=== PATIENT | female | born 1990 | race Two or more races ===

== ENCOUNTER 2019-02-19 03:46 | Inpatient (IN) | payer OTHER ==
[2019-02-19] MEDS ORDERED: Promethazine 25 MG/ML SDV IM ONE (04:13)
[2019-02-19] MEDS ORDERED: Morphine 4 MG/ML Syringe IM ONE (04:13)
[2019-02-19] MEDS ORDERED: Sodium Chloride 0.9% 10 ML Syringe FLUSH PRN (06:50)
[2019-02-19] MEDS ORDERED: Nalbuphine 10 MG/1 ML Vial IVPUSH PRN (06:50)
[2019-02-19] MEDS ORDERED: Ondansetron 4 MG/2 ML SDV IVPUSH PRN (06:50)
--- NOTE | 2019-02-19 06:53 | PCM.LDHP ---
L&D History of Present Illness - General Date of Service: 02/19/19 Admit Problem/Dx: Admission Diagnosis/Problem Admission Diagnosis/Problem Source of Information: Patient History Limitations: Reports: No Limitations - History of Present Illness Introduction:: Patient is a 28 y/o at 39 2/7 wks who presents for concerns of labor. Has been having on and off yulisa sheehan for the last few days. Was seen in L& D last evening and discharged home with an Rx for ambien to aid in sleep with these bothersome contractions . Did not take medication. States she has not slept all night. Contractions have significantly worsened. No LOF. 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: : 1 Para: 0 LMP (Approximate): Endocrine/Metabolic History: Reports: Hypothyroidism - Past Surgical History Other Surgical History Comment: No past surgical history Social & Family History - Family History Family Medical History: Noncontributory - Tobacco Use Smoking Status *Q: Never Smoker Second Hand Smoke Exposure: No - Alcohol Use Alcohol Use History: No - Recreational Drug Use Recreational Drug Use: No H&P Review of Systems - Review of Systems: Review Of Systems: See Below General: Reports: No Symptoms Pulmonary: Reports: No Symptoms Cardiovascular: Reports: No Symptoms Gastrointestinal: Reports: Abdominal Pain Genitourinary: Reports: No Symptoms Musculoskeletal: Reports: No Symptoms Psychiatric: Reports: No Symptoms Neurological: Reports: No Symptoms L&D Exam - Exam Exam: See Below - Vital Signs Vital Signs: Last Vital Signs Temp 36.8 C 02/19/19 04:30 Pulse Resp 14 02/19/19 04:30 BP 103/76 02/19/19 04:30 Pulse Ox 100 02/19/19 04:30 Weight: 75.387 kg - OB Specific Contraction Intensity: Moderate Movement: Active Heart Tones: Present Heart Tones per Min: 130 Heart Rate (FHR) Variability: Moderate (6-25 bmp) Presentation: Vertex - Schaefer Score Schaefer Score Cervix Position: Midposition Schaefer Score Consistency: Soft Schaefer Score Effacement: >80% Schaefer Score Dilation: 1-2 cm Schaefer Score Infant's Station: -2 Schaefer Score Total: 8 - Exam General: Alert, Oriented, Cooperative Lungs: Clear to Auscultation, Normal Respiratory Effort Cardiovascular: Regular Rate, Regular Rhythm GI/Abdominal Exam: Soft, Non-Tender Genitourinary: Normal external exam Extremities: Normal Inspection Skin: Warm, Dry, Intact - Patient Data Result Diagrams: 02/19/19 07:18 - Problem List (1) 39 weeks gestation of SNOMED Code(s): 02502574 ICD Code: Z3A.39 - 39 WEEKS GESTATION OF Status: Acute Current Visit: Yes (2) Prolonged latent phase of labor SNOMED Code(s): 837904526 ICD Code: O63.0 - PROLONGED FIRST STAGE (OF LABOR) Status: Acute Current Visit: Yes Problem List Initiated/Reviewed/Updated: Yes Orders Last 24hrs: Active Orders 24 hr Category Date Time Status Activity as Tolerated [RC] PFP Care 02/19/19 06:50 Ordered Communication Order [RC] ASDIRECTED Care 02/19/19 06:50 Ordered Heart Tones [RC] ASDIRECTED Care 02/19/19 06:51 Ordered Non Stress Test [RC] PER UNIT ROUTINE Care 02/19/19 06:50 Ordered Notify Provider [RC] PFP Care 02/19/19 06:50 Ordered Notify Provider [RC] PRN Care 02/19/19 06:50 Ordered Peripheral IV Care [RC] . DIRECTED Care 02/19/19 06:51 Ordered Vital Signs [RC] PER UNIT ROUTINE Care 02/19/19 06:50 Ordered CBC W/O DIFF,HEMOGRAM [HEME] Routine Lab 02/19/19 06:50 Ordered RAPID PLASMA REAGIN,RPR [CHEM] Routine Lab 02/19/19 06:50 Ordered TYPE AND SCREEN [BBK] Routine Lab 02/19/19 06:50 Ordered Lactated Ringers [Ringers, Lactated] 1,000 ml Med 02/19/19 07:00 Ordered IV ASDIRECTED Nalbuphine [Nubain] Med 02/19/19 06:50 Ordered 10 mg IVPUSH Q2H PRN Ondansetron [Zofran] Med 02/19/19 06:50 Ordered 4 mg IVPUSH Q4H PRN Oxytocin/Lactated Ringers [Pitocin in LR 10 Units/1,000 Med 02/19/19 07:00 Ordered ML] 10 unit in 1,000 ml IV .CONTINUOUS Sodium Chloride 0.9% [Saline Flush] Med 02/19/19 06:50 Ordered 10 ml FLUSH ASDIRECTED PRN Electronic Heart Tones Ext w TOCO [WOMSER] Oth 02/19/19 06:50 Ordered Routine Electronic Heart Tones Internal [WOMSER] Per Unit Ot 02/19/19 06:50 Ordered Routine Peripheral IV Insertion Adult [OM.PC] Routine Oth 02/19/19 06:50 Ordered Resuscitation Status Routine Resus Stat 02/19/19 06:50 Ordered Assessment/Plan Comment:: 28 y/o G1 at 39 2/7 wks with prolonged latent labor phase. Will try initially treating with 8 mg of IM morphine and 25 mg of IM phenergan. Will reassess in a few hours. ([id number]) 0720 Patient with small amount of change. Did rest well, but continues to have regular contractions she rates strongly. Will admit for labor. Labs ordered. GBS negative, no need for antibiotics. AROM performed with release of meconium stained fluid. Pain management per patient preference. Anticipate .
[2019-02-19] MEDS ORDERED: Oxytocin/Lactated Ringers 10 UNIT/1,000 ML BAG IV SCH ×2 (07:00→17:45)
[2019-02-19] MEDS: Lactated Ringers 1,000 ML IV SCH ×4 (08:59→14:58)
[2019-02-19] MEDS ORDERED: fentaNYL 100 MCG/2 ML SDV EPIDUR PRN (09:45)
[2019-02-19] MEDS ORDERED: ePHEDrine 50 MG/ML SDV IVPUSH PRN ×2 (09:45→20:33)
[2019-02-19] MEDS ORDERED: Bupivacaine/fentaNYL/NS 100 ML Bag EPIDUR PRN (09:45)
[2019-02-19] MEDS ORDERED: diphenhydrAMINE 50 MG/ML SDV IVPUSH PRN ×2 (09:45→20:33)
--- NOTE | 2019-02-19 10:15 | PCM.PREANE ---
Preanesthetic Assessment - Procedure Proposed Procedure: lABOR EPIDURAL - Anesthesia/Transfusion/Family Hx Anesthesia History: No Prior Anesthesia Family History of Anesthesia Reaction: No Transfusion History: No Prior Transfusion(s) - Review of Systems General: No Symptoms Pulmonary: No Symptoms Cardiovascular: No Symptoms Gastrointestinal: Abdominal Pain (LABOR) Neurological: No Symptoms Other: Reports: Anxiety - Physical Assessment Vital Signs: Last Vital Signs Temp 36.8 C 02/19/19 04:30 Pulse Resp 14 02/19/19 04:30 BP 103/76 02/19/19 04:30 Pulse Ox 100 02/19/19 04:30 Height: 1.6 m Weight: 75.387 kg ASA Class: 2 Mental Status: Alert & Oriented x3 Airway Class: Mallampati = 1 Dentition: Reports: Normal Dentition Thyro-Mental Finger Breadths: 3 Mouth Opening Finger Breadths: 3 ROM/Head Extension: Full Lungs: Clear to Auscultation, Normal Respiratory Effort Cardiovascular: Regular Rate, Regular Rhythm - Lab Values: Laboratory Last Values WBC 13.52 K/mm3 (3.98-10.04) H 02/19/19 07:18 RBC 4.29 M/mm3 (3.98-5.22) 02/19/19 07:18 Hgb 12.2 gm/dl (11.2-15.7) 02/19/19 07:18 Hct 35.9 % (34.1-44.9) 02/19/19 07:18 MCV 83.7 fl (79.4-94.8) D 02/19/19 07:18 MCH 28.4 pg (25.6-32.2) 02/19/19 07:18 MCHC 34.0 g/dl (32.2-35.5) 02/19/19 07:18 RDW Std Deviation 39.8 fL (36.4-46.3) 02/19/19 07:18 Plt Count 265 K/mm3 (182-369) 02/19/19 07:18 MPV 11.4 fl (9.4-12.3) 02/19/19 07:18 Blood Type O POSITIVE 02/19/19 07:18 Gel Antibody Screen Negative 02/19/19 07:18 - Allergies Allergies/Adverse Reactions: Allergies Allergy/AdvReac Type Severity Reaction Status Date / Time No Known Allergies Allergy Verified 02/19/19 06:33 - Anesthesia Plan Pre-Op Medication Ordered: None - Acknowledgements Anesthesia Type Planned: Epidural Pt an Appropriate Candidate for the Planned Anesthesia: Yes Alternatives and Risks of Anesthesia Discussed w Pt/Guardian: Yes Pt/Guardian Understands and Agrees with Anesthesia Plan: Yes PreAnesthesia Questionnaire - Past Health History Medical/Surgical History: Denies Medical/Surgical History Gastrointestinal History: Reports: GERD 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: Endocrine/Metabolic History: Reports: Hypothyroidism Other Endocrine/Metabolic History: 2 nodules on thyroid - Past Surgical History Other Surgical History Comment: No past surgical history - SUBSTANCE USE Smoking Status *Q: Never Smoker Second Hand Smoke Exposure: No Recreational Drug Use History: No - HOME MEDS Home Medications: Home Meds Levothyroxine [Synthroid] 50 mcg PO DAILY 12/11/18 [History] - CURRENT (IN HOUSE) MEDS Current Meds: Current Medications Diphenhydramine HCl (Benadryl) 25 mg IVPUSH Q6H PRN PRN Reason: Itching Ephedrine Sulfate (Ephedrine Sulfate) 5 mg IVPUSH ASDIRECTED PRN PRN Reason: HYPOTENTSION Fentanyl (Sublimaze) 100 mcg EPIDUR Q3H PRN PRN Reason: Pain Last Admin: 02/19/19 10:07 Dose: 100 mcg Fentanyl/Bupivacaine HCl (Fentanyl/Bupivacaine/Ns 2 Mcg-0.125% 100 Ml) 100 ml EPIDUR CONTINUOUS PRN PRN Reason: Pain Last Admin: 02/19/19 10:07 Dose: 100 ml Lactated Ringer's (Ringers, Lactated) 1,000 mls @ 100 mls/hr IV ASDIRECTED BETHANY Last Admin: 02/19/19 08:59 Dose: 100 mls/hr Oxytocin/Lactated Ringer's (Pitocin In Lr 10 Units/1,000 Ml) 10 unit in 1,000 mls @ 500 mls/hr IV .CONTINUOUS BETHANY Nalbuphine HCl (Nubain) 10 mg IVPUSH Q2H PRN PRN Reason: Pain Ondansetron HCl (Zofran) 4 mg IVPUSH Q4H PRN PRN Reason: Nausea/Vomiting Sodium Chloride (Saline Flush) 10 ml FLUSH ASDIRECTED PRN PRN Reason: Keep Vein Open Discontinued Medications Morphine Sulfate (Morphine) 8 mg IM ONETIME ONE Stop: 02/19/19 04:14 Last Admin: 02/19/19 04:26 Dose: 8 mg Promethazine HCl (Phenergan) 25 mg IM ONETIME ONE Stop: 02/19/19 04:14 Last Admin: 02/19/19 04:27 Dose: 25 mg
[2019-02-19] MEDS ORDERED: Acetaminophen 325 MG Tab PO ONE (14:30)
[2019-02-19] MEDS: Ampicillin 2 GM in Sodium Chloride 0.9% 100 ML IV SCH ×2 (14:50→20:57)
--- NOTE | 2019-02-19 17:10 | PCM.SN ---
- Free Text/Narrative Note: 1200 - Late entry. Patient received epidural. Doing well. Did require ephedrine right after epidural due to hypotension and few prolonged decelerations. Currently 5 cm and 90% effaced. Continue present management Noa Tang MD
--- NOTE | 2019-02-19 17:12 | PCM.SN ---
- Free Text/Narrative Note: 1430 - late entry Received call from L&D. Patient with fever to 100.6. Will start Ampicillin, Gentamicin, and give dose of Tylenol for presumed chorioamnionitis. Otherwise continue present management Noa Tang MD
--- NOTE | 2019-02-19 17:14 | PCM.PNLD ---
Labor Progress Note - VS & Meds Vital Signs: Last Vital Signs Temp 36.8 C 02/19/19 04:30 Pulse Resp 14 02/19/19 04:30 BP 103/76 02/19/19 04:30 Pulse Ox 100 02/19/19 04:30 Active Medications: Current Medications Diphenhydramine HCl (Benadryl) 25 mg IVPUSH Q6H PRN PRN Reason: Itching Ephedrine Sulfate (Ephedrine Sulfate) 5 mg IVPUSH ASDIRECTED PRN PRN Reason: HYPOTENTSION Fentanyl (Sublimaze) 100 mcg EPIDUR Q3H PRN PRN Reason: Pain Last Admin: 02/19/19 10:07 Dose: 100 mcg Fentanyl/Bupivacaine HCl (Fentanyl/Bupivacaine/Ns 2 Mcg-0.125% 100 Ml) 100 ml EPIDUR CONTINUOUS PRN PRN Reason: Pain Last Admin: 02/19/19 10:07 Dose: 100 ml Lactated Ringer's (Ringers, Lactated) 1,000 mls @ 100 mls/hr IV ASDIRECTED BETHANY Last Admin: 02/19/19 14:58 Dose: 100 mls/hr Oxytocin/Lactated Ringer's (Pitocin In Lr 10 Units/1,000 Ml) 10 unit in 1,000 mls @ 500 mls/hr IV .CONTINUOUS BETHANY Ampicillin Sodium 2 gm/ Sodium (Chloride) 100 mls @ 200 mls/hr IV Q6H BETHANY Last Admin: 02/19/19 14:50 Dose: 200 mls/hr Nalbuphine HCl (Nubain) 10 mg IVPUSH Q2H PRN PRN Reason: Pain Ondansetron HCl (Zofran) 4 mg IVPUSH Q4H PRN PRN Reason: Nausea/Vomiting Sodium Chloride (Saline Flush) 10 ml FLUSH ASDIRECTED PRN PRN Reason: Keep Vein Open Discontinued Medications Acetaminophen (Tylenol) 975 mg PO ONETIME ONE Stop: 02/19/19 14:31 Last Admin: 02/19/19 14:47 Dose: 975 mg Gentamicin Sulfate 375 mg/ (Sodium Chloride) 109.375 mls @ 200 mls/hr IV ONETIME ONE Stop: 02/19/19 15:32 Last Admin: 02/19/19 15:11 Dose: 200 mls/hr Morphine Sulfate (Morphine) 8 mg IM ONETIME ONE Stop: 02/19/19 04:14 Last Admin: 02/19/19 04:26 Dose: 8 mg Promethazine HCl (Phenergan) 25 mg IM ONETIME ONE Stop: 02/19/19 04:14 Last Admin: 02/19/19 04:27 Dose: 25 mg - Uterine Contractions Uterine Monitoring Mode: External Vantage Contraction Intensity: Moderate to Strong - Monitoring Monitor Mode: External Ultrasound Heart Rate (FHR) Baseline: 165 Heart Rate (FHR) Variability: Moderate (6-25 bmp) Accelerations: Present, 15x15 Decelerations: Late, Variable, Intermittent (<50% x 20 min) Strip Review: Category II - Vaginal Exam Dilation (cm): 9-10 Effacement (Percent): 90 Station: 1 Cervical Position: Midposition - Labor Progress (Free Text) Labor Progress: Patient overall doing well. On hands/knees. First found to be 9 cm at 1600. Still 9 cm. Will reassess closely. Overall status reassuring, but did review with infection there is possibility of baby not tolerating labor and requiring . Family agrees.
[2019-02-19] MEDS ORDERED: Metoclopramide 10 MG/2 ML SDV IVPUSH ONE (17:52)
[2019-02-19] MEDS ORDERED: Clindamycin Phosphate 900 MG in Sodium Chloride 0.9% 100 ML IV ONE (17:52)
[2019-02-19] MEDS ORDERED: Citric Acid/Sodium Citrate Solution 30 ML Cup PO ONE (17:52)
[2019-02-19] MEDS ORDERED: Metoclopramide 10 MG/2 ML SDV ONE (17:57)
[2019-02-19] MEDS ORDERED: Citric Acid/Sodium Citrate Solution 30 ML Cup ONE (17:57)
--- NOTE | 2019-02-19 17:59 | PCM.SN ---
- Free Text/Narrative Note: 1744: Patient still 9 cm. Baby with increasing baseline. Continued variables and intermittent late decelerations. Reviewed with family and they agree to c- section. OR crew notified. Already receiving gentamicin and ampicillin. Will add in Clindamycin for surgery prophylaxis Noa Tang MD
--- NOTE | 2019-02-19 17:59 | PCM.OPNOTE ---
- General Post-Op/Procedure Note Date of Surgery/Procedure: 02/19/19 Operative Procedure(s): Primary low transverse Findings: Baby girl in a vertex presentation with APGARS of 8 & 9. Weight of 7 lbs 10 oz. Normal appearance of the uterus, fallopian tubes, and ovaries. Pre Op Diagnosis: 39 weeks gestation. Meconium stained amniotic fluid. Chorioamnionitis. Non reassuring status Post-Op Diagnosis: Same Anesthesia Technique: Epidural Primary Surgeon: Noa Tang Secondary Surgeon: Thu Whyte Anesthesia Provider: Magdiel Hinds Reason Produce Manager Was Necessary: Speed, safety of procedure. Pathology: Cord blood collected. Placenta discarded. Fluid Replacement, Intraop: 1,500 Output, Urine Amount: 75 EBL in mLs: 900 Complications: None Condition: Good Free Text/Narrative:: The risks, benefits, indications, potential complications, and alternatives were explained to the patient and informed consent obtained. After induction of anesthesia, the patient was placed in a supine position and then draped and prepped in the usual sterile manner. A Pfannenstiel incision was made and carried down through the subcutaneous tissue to the fascia. Fascial incision was made and extended transversely. The fascia was from the underlying rectus tissue superiorly and inferiorly. The peritoneum was identified and entered. Peritoneal incision was extended longitudinally. The utero-vesical peritoneal reflection was incised transversely and the bladder flap was bluntly freed from the lower uterine segment. A low transverse uterine incision was made sharply with a scalpel and extended bluntly in a cephalocaudad direction. A baby girl was delivered from a vertex presentation, straight OP, with APGARS as above. After the umbilical cord was clamped and cut cord blood was obtained for evaluation. The placenta was removed intact and appeared normal. The uterus was exteriorized and cleared of clots. The uterine outline, tubes and ovaries appeared normal. The uterine incision was closed with running locked sutures of 0 Vicryl. Hemostasis was obtained with a second imbricating layer of 0 vicryl. The uterus was then placed back into the abdomen. The infracolic gutters were cleared of blood clots. The fascia was then reapproximated with running sutures of 0 Vicryl. The subcutaneous tissue was irrigated with sterile warm normal saline, hemostasis obtained with cautery. This layer was also closed with a running 0 vicryl. The skin was reapproximated with running Subcuticular 4-0 monocryl sutures. Instrument, sponge, and needle counts were correct prior the abdominal closure and at the conclusion of the case.
[2019-02-19] MEDS ORDERED: Sodium Chloride 0.9% 100 ML ONE (18:10)
[2019-02-19] MEDS ORDERED: Bupivacaine 0.5% 30 ML SDV ONE (18:11)
[2019-02-19] MEDS ORDERED: ceFAZolin 1 GM Vial ONE (18:33)
[2019-02-19] MEDS ORDERED: Ketorolac 30 MG/ML SDV ONE (18:38)
[2019-02-19] MEDS ORDERED: Morphine PF 10 MG/10 ML SDV ONE (18:39)
[2019-02-19] MEDS ORDERED: Lactated Ringers 1,000 ML ONE (19:02)
--- NOTE | 2019-02-19 19:18 | PCM.POSTAN ---
POST ANESTHESIA ASSESSMENT - MENTAL STATUS Mental Status: Alert, Oriented - VITAL SIGNS Vital Signs: Last Vital Signs Temp 36.8 C 02/19/19 04:30 Pulse Resp 14 02/19/19 04:30 BP 103/76 02/19/19 04:30 Pulse Ox 100 02/19/19 04:30 - RESPIRATORY Respiratory Status: Respiratory Rate WNL, Airway Patent, O2 Saturation Stable - CARDIOVASCULAR CV Status: Pulse Rate WNL, Blood Pressure Stable - GASTROINTESTINAL GI Status: No Symptoms - PAIN Pain Score: 0 - POST OP HYDRATION Hydration Status: Adequate & Stable (no anesthesia complicatioins noted)
[2019-02-19] MEDS ORDERED: Meperidine 50 MG/ML Vial IVPUSH PRN (19:19)
[2019-02-19] MEDS ORDERED: Ondansetron 4 MG/2 ML SDV IV PRN (20:33)
[2019-02-19] MEDS ORDERED: Dextrose 5%-Lactated Ringers 1,000 ML IV SCH (20:33)
[2019-02-19] MEDS ORDERED: Naloxone 0.4 MG/ML SDV IVPUSH PRN (20:33)
[2019-02-19] MEDS ORDERED: Docusate Sodium 100 MG Cap PO PRN (20:33)
[2019-02-19] MEDS ORDERED: Acetaminophen 325 MG/10.15 ML ML PO ONE (21:00)
[2019-02-19] MEDS ORDERED: Acetaminophen 325 MG Tab PO STA (21:33)
[2019-02-19] MEDS: Acetaminophen/oxyCODONE 325-5 MG Tab PO PRN (23:11)
[2019-02-20] MEDS: Ketorolac 30 MG/ML SDV IVPUSH SCH ×3 (00:19→12:40)
[2019-02-20] MEDS: Clindamycin Phosphate in D5W 900 MG in Premix Bag 1 BAG IV SCH ×6 (02:09→18:06)
[2019-02-20] MEDS: Ampicillin 2 GM in Sodium Chloride 0.9% 100 ML IV SCH ×4 (02:16→23:00)
[2019-02-20] MEDS: Levothyroxine 50 MCG Tab PO SCH (06:19)
--- NOTE | 2019-02-20 08:16 | PCM.PNPP ---
- General Info Date of Service: 02/20/19 Functional Status: Reports: Pain Controlled, Tolerating Diet, Ambulating - Review of Systems General: Reports: No Symptoms Pulmonary: Reports: No Symptoms Cardiovascular: Reports: No Symptoms Gastrointestinal: Reports: Abdominal Pain (managed with medication ) Genitourinary: Reports: No Symptoms Musculoskeletal: Reports: No Symptoms Neurological: Reports: No Symptoms - Patient Data Vital Signs - Most Recent: Last Vital Signs Temp 36.6 C 02/20/19 03:53 Pulse 93 02/20/19 03:53 Resp 18 02/20/19 07:00 BP 105/57 L 02/20/19 03:53 Pulse Ox 97 02/20/19 07:00 Weight - Most Recent: 75.387 kg I&O - Last 24 Hours: Intake & Output 02/19/19 02/20/19 02/20/19 22:59 06:59 14:59 Intake Total 3650 1200 Output Total 125 2000 Balance 3525 -2000 1200 Lab Results - Last 24 Hours: Laboratory Results - last 24 hr 02/19/19 02/19/19 02/20/19 Range/Units 07:18 07:18 04:56 WBC 18.53 H (3.98-10.04) K/mm3 RBC 3.06 L (3.98-5.22) M/mm3 Hgb 8.5 L D (11.2-15.7) gm/dl Hct 26.0 L (34.1-44.9) % MCV 85.0 (79.4-94.8) fl MCH 27.8 (25.6-32.2) pg MCHC 32.7 (32.2-35.5) g/dl RDW Std Deviation 38.8 (36.4-46.3) fL Plt Count 209 (182-369) K/mm3 MPV 11.0 (9.4-12.3) fl RPR Non-reactive (NONREACTIVE) Blood Type O POSITIVE Gel Antibody Screen Negative Med Orders - Current: Current Medications Diphenhydramine HCl (Benadryl) 25 mg IVPUSH Q6H PRN PRN Reason: Itching or Nausea Docusate Sodium (Colace) 100 mg PO Q12H PRN PRN Reason: Constipation Ephedrine Sulfate (Ephedrine Sulfate) 5 mg IVPUSH SEECOMMENT PRN PRN Reason: Other Ampicillin Sodium 2 gm/ Sodium (Chloride) 100 mls @ 200 mls/hr IV Q6H [facility] Last Admin: 02/20/19 02:16 Dose: 200 mls/hr Clindamycin Phosphate 900 mg/ (Premix) 50 mls @ 100 mls/hr IV Q8H [facility] Stop: 02/23/19 02:01 Last Admin: 02/20/19 02:09 Dose: 100 mls/hr Gentamicin Sulfate 375 mg/ (Sodium Chloride) 109.375 mls @ 200 mls/hr IV ONETIME ONE Stop: 02/20/19 15:32 Ibuprofen (Motrin) 600 mg PO Q6H PRN PRN Reason: mild pain or fever Ketorolac Tromethamine (Toradol) 30 mg IVPUSH Q6H [facility] Stop: 02/20/19 12:31 Last Admin: 02/20/19 06:19 Dose: 30 mg Levothyroxine Sodium (Synthroid) 50 mcg PO ACBREAKFAST [facility] Last Admin: 02/20/19 06:19 Dose: 50 mcg Meperidine HCl (Meperidine) 12.5 mg IVPUSH ONETIME PRN PRN Reason: Shivering Naloxone HCl (Narcan) 0.1 mg IVPUSH SEECOMMENT PRN PRN Reason: Respiratory Depression Ondansetron HCl (Zofran) 4 mg IV Q8H PRN PRN Reason: Nausea/Vomiting Oxycodone/Acetaminophen (Percocet 325-5 Mg) 2 tab PO Q4H PRN PRN Reason: Pain (moderate 4-6) Last Admin: 02/19/19 23:11 Dose: 2 tab Discontinued Medications Acetaminophen (Tylenol) 975 mg PO ONETIME ONE Stop: 02/19/19 14:31 Last Admin: 02/19/19 14:47 Dose: 975 mg Acetaminophen (Tylenol) 975 mg PO ONETIME ONE Stop: 02/19/19 21:01 Last Admin: 02/19/19 22:21 Dose: Not Given Acetaminophen (Tylenol) 975 mg PO NOW STA Stop: 02/19/19 21:34 Last Admin: 02/19/19 21:40 Dose: 975 mg Cefazolin Sodium (Ancef) Confirm Administered Dose 2 gm .ROUTE .STK-MED ONE Stop: 02/19/19 18:34 Citric Acid/Sodium Citrate (Bicitra Solution) 30 ml PO ONETIME ONE Stop: 02/19/19 17:53 Last Admin: 02/19/19 18:00 Dose: 30 ml Citric Acid/Sodium Citrate (Bicitra Solution) Confirm Administered Dose 30 ml .ROUTE .STK-MED ONE Stop: 02/19/19 17:58 Last Admin: 02/20/19 06:04 Dose: Not Given Diphenhydramine HCl (Benadryl) 25 mg IVPUSH Q6H PRN PRN Reason: Itching Ephedrine Sulfate (Ephedrine Sulfate) 5 mg IVPUSH ASDIRECTED PRN PRN Reason: HYPOTENTSION Fentanyl (Sublimaze) 100 mcg EPIDUR Q3H PRN PRN Reason: Pain Last Admin: 02/19/19 10:07 Dose: 100 mcg Fentanyl/Bupivacaine HCl (Fentanyl/Bupivacaine/Ns 2 Mcg-0.125% 100 Ml) 100 ml EPIDUR CONTINUOUS PRN PRN Reason: Pain Last Admin: 02/19/19 10:07 Dose: 100 ml Lactated Ringer's (Ringers, Lactated) 1,000 mls @ 100 mls/hr IV ASDIRECTED [facility] Last Admin: 02/19/19 14:58 Dose: 100 mls/hr Oxytocin/Lactated Ringer's (Pitocin In Lr 10 Units/1,000 Ml) 10 unit in 1,000 mls @ 500 mls/hr IV .CONTINUOUS [facility] Last Admin: 02/19/19 17:28 Dose: 500 mls/hr Gentamicin Sulfate 375 mg/ (Sodium Chloride) 109.375 mls @ 200 mls/hr IV ONETIME ONE Stop: 02/19/19 15:32 Last Admin: 02/19/19 15:11 Dose: 200 mls/hr Oxytocin/Lactated Ringer's (Pitocin In Lr 10 Units/1,000 Ml) 10 unit in 1,000 mls @ 12 mls/hr IV TITRATE [facility]; Protocol Last Admin: 02/19/19 17:28 Dose: 2 munits/min, 12 mls/hr Clindamycin Phosphate 900 mg/ (Sodium Chloride) 106 mls @ 100 mls/hr IV ONETIME ONE Stop: 02/19/19 18:55 Last Admin: 02/20/19 06:04 Dose: Not Given Sodium Chloride (Normal Saline) Confirm Administered Dose 100 mls @ as directed .ROUTE .STK-MED ONE Stop: 02/19/19 18:11 Last Admin: 02/20/19 06:04 Dose: Not Given Lactated Ringer's (Ringers, Lactated) Confirm Administered Dose 1,000 mls @ as directed .ROUTE .STK-MED ONE Stop: 02/19/19 19:03 Dextrose/Lactated Ringer's (Dextrose 5%-Lactated Ringers) 1,000 mls @ 125 mls/ hr IV ASDIRECTED [facility] Stop: 02/20/19 04:32 Last Admin: 02/19/19 20:57 Dose: 125 mls/hr Ketorolac Tromethamine (Toradol) Confirm Administered Dose 30 mg .ROUTE .STK- MED ONE Stop: 02/19/19 18:39 Metoclopramide HCl (Reglan) 10 mg IVPUSH ONETIME ONE Stop: 02/19/19 17:53 Last Admin: 02/19/19 18:01 Dose: 10 mg Metoclopramide HCl (Reglan) Confirm Administered Dose 10 mg .ROUTE .STK-MED ONE Stop: 02/19/19 17:58 Last Admin: 02/20/19 06:04 Dose: Not Given Morphine Sulfate (Morphine) 8 mg IM ONETIME ONE Stop: 02/19/19 04:14 Last Admin: 02/19/19 04:26 Dose: 8 mg Morphine Sulfate (Duramorph Pf) Confirm Administered Dose 10 mg .ROUTE .STK-MED ONE Stop: 02/19/19 18:40 Nalbuphine HCl (Nubain) 10 mg IVPUSH Q2H PRN PRN Reason: Pain Ondansetron HCl (Zofran) 4 mg IVPUSH Q4H PRN PRN Reason: Nausea/Vomiting Promethazine HCl (Phenergan) 25 mg IM ONETIME ONE Stop: 02/19/19 04:14 Last Admin: 02/19/19 04:27 Dose: 25 mg Sodium Chloride (Saline Flush) 10 ml FLUSH ASDIRECTED PRN PRN Reason: Keep Vein Open - Infant Interaction Disposition, : [place] in Room with Family Infant Interaction: Holding Infant Feeding: Attempted ; Nursed Fair/Poor Support Person: Other (see below) - Recovery Exam Fundal Tone: Firm Fundal Level: At Umbilicus Fundal Placement: Midline Lochia Amount: Moderate Lochia Color: Rubra/Red Perineum Description: Edematous Episiotomy/Laceration: None Bladder Status: Indwelling Catheter in Place Urinary Elimination: Indwelling Catheter - Exam General: Alert, Oriented, Cooperative Lungs: Clear to Auscultation, Normal Respiratory Effort Cardiovascular: Regular Rate, Regular Rhythm GI/Abdominal Exam: Soft, Tender (appropriate post op) Extremities: Normal Inspection Skin: Warm, Dry, Intact Wound/Incisions: Drainage (serosanguinous drainage on incision ) - Problem List & Annotations (1) 39 weeks gestation of SNOMED Code(s): 60162150 Code(s): Z3A.39 - 39 WEEKS GESTATION OF Status: Acute Current Visit: Yes (2) Prolonged latent phase of labor SNOMED Code(s): 961300500 Code(s): O63.0 - PROLONGED FIRST STAGE (OF LABOR) Status: Acute Current Visit: Yes (3) Thick meconium stained amniotic fluid SNOMED Code(s): 716690039 Code(s): P96.83 - MECONIUM STAINING Status: Acute Current Visit: Yes (4) Chorioamnionitis SNOMED Code(s): 22387421 Code(s): O41.1290 - CHORIOAMNIONITIS, UNSP TRIMESTER, NOT APPLICABLE OR UNSP Status: Acute Current Visit: Yes Qualifiers: Fetus number: single or unspecified fetus Trimester: third trimester Qualified Code(s): O41.1230 - Chorioamnionitis, third trimester, not applicable or unspecified (5) Non-reassuring status SNOMED Code(s): 399546410 Code(s): OHK9064 - Status: Acute Current Visit: Yes (6) S/P primary low transverse SNOMED Code(s): 390828948, 72456751, 982558708, 651037356, 593016836 Code(s): Z98.891 - HISTORY OF UTERINE SCAR FROM PREVIOUS SURGERY Status: Acute Current Visit: Yes - Problem List Review Problem List Initiated/Reviewed/Updated: Yes - My Orders Last 24 Hours: My Active Orders 02/19/19 14:30 Ampicillin 2 gm Sodium Chloride 0.9% [Normal Saline] 100 ml IV Q6H 02/19/19 17:52 Procedure Site Prep Instruct [RC] ASDIRECTED Verify Patient Consent Obtain [RC] PER UNIT ROUTINE 02/19/19 20:33 Antiembolic Devices [RC] PER UNIT ROUTINE Communication Order [RC] PER UNIT ROUTINE Intake and Output [RC] Q4H May Shower [RC] PER UNIT ROUTINE Notify Provider Intake and Out [RC] ASDIRECTED RT Incentive Spirometry [RC] Q2HWA Vital Signs [RC] Q4HR Acetaminophen/oxyCODONE [Percocet 325-5 MG] 2 tab PO Q4H PRN Docusate Sodium [Colace] 100 mg PO Q12H PRN Naloxone [Narcan] 0.1 mg IVPUSH SEECOMMENT PRN Ondansetron [Zofran] 4 mg IV Q8H PRN diphenhydrAMINE [Benadryl] 25 mg IVPUSH Q6H PRN ePHEDrine [ePHEDrine sulfate] 5 mg IVPUSH SEECOMMENT PRN Assess Lochia [WOMSER] Per Unit Routine Assess Uterine Involution [WOMSER] Per Unit Routine Breast Pump [WOMSER] Per Unit Routine Heat Therapy [OM.PC] Per Unit Routine Peripheral IV Discontinue [OM.PC] Routine Sequential Compression Device [OM.PC] Per Unit Routine 02/19/19 Dinner Regular Diet [DIET] 02/20/19 00:30 Ketorolac [Toradol] 30 mg IVPUSH Q6H 02/20/19 02:00 Clindamycin Phosphate in D5W [Cleocin in D5W] 900 mg Premix Bag 1 bag IV Q8H 02/20/19 06:00 Levothyroxine [Synthroid] 50 mcg PO ACBREAKFAST 02/20/19 15:00 Gentamicin 375 mg Sodium Chloride 0.9% [Normal Saline] 100 ml IV ONETIME 02/20/19 18:30 Ibuprofen [Motrin] 600 mg PO Q6H PRN 02/20/19 19:14 Urinary Catheter Removal [RC] Per Unit Routine - Assessment Assessment:: 28 y/o POD#1 - Plan Plan:: S/p PLTCS * Routine cares * Continue Ampicillin, Gentamicin, and Clindamycin for about 24 hours after last fever. Did have one last elevated temperature last night when first returned to L&D from PACU * CBC this AM with as anticipated drop in Hb. No further monitoring needed unless clinical concern * Encourage breast feeding * Discharge home in 1-2 days
--- NOTE | 2019-02-20 09:05 | PCM48HPAN ---
Post Anesthesia Note - EVALUATION WITHIN 48HRS OF ANESTHETIC Vital Signs in Normal Range: Yes Patient Participated in Evaluation: Yes Respiratory Function Stable: Yes Airway Patent: Yes Cardiovascular Function Stable: Yes Hydration Status Stable: Yes Pain Control Satisfactory: Yes Nausea and Vomiting Control Satisfactory: Yes Mental Status Recovered: Yes Vital Signs: Last Vital Signs Temp 36.6 C 02/20/19 03:53 Pulse 93 02/20/19 03:53 Resp 18 02/20/19 07:00 BP 105/57 L 02/20/19 03:53 Pulse Ox 97 02/20/19 07:00 - COMMENTS/OBSERVATIONS Free Text/Narrative:: Mild upper quadrant discomfort not requiring medication. No concerns at this time. Recovering as expected.
[2019-02-20] MEDS: Acetaminophen/oxyCODONE 325-5 MG Tab PO PRN (15:56)
[2019-02-20] MEDS: Ibuprofen 600 MG Tab PO PRN (23:09)
[2019-02-21] MEDS: Acetaminophen/oxyCODONE 325-5 MG Tab PO PRN ×3 (04:07→17:38)
[2019-02-21] MEDS: Levothyroxine 50 MCG Tab PO SCH (06:05)
--- NOTE | 2019-02-21 09:04 | PCM.DCSUM1 ---
Discharge Summary - Discharge Data Discharge Date: 02/21/19 Discharge Disposition: Home, Self-Care 01 Condition: Good - Referral to Home Health Primary Care Physician: Noa Tang MD - Discharge Diagnosis/Problem(s) (1) 39 weeks gestation of SNOMED Code(s): 06471432 ICD Code: Z3A.39 - 39 WEEKS GESTATION OF Status: Acute Current Visit: Yes (2) Prolonged latent phase of labor SNOMED Code(s): 677072115 ICD Code: O63.0 - PROLONGED FIRST STAGE (OF LABOR) Status: Acute Current Visit: Yes (3) Thick meconium stained amniotic fluid SNOMED Code(s): 748254133 ICD Code: P96.83 - MECONIUM STAINING Status: Acute Current Visit: Yes (4) Chorioamnionitis SNOMED Code(s): 94273387 ICD Code: O41.1290 - CHORIOAMNIONITIS, UNSP TRIMESTER, NOT APPLICABLE OR UNSP Status: Acute Current Visit: Yes Qualifiers: Fetus number: single or unspecified fetus Trimester: third trimester Qualified Code(s): O41.1230 - Chorioamnionitis, third trimester, not applicable or unspecified (5) Non-reassuring status SNOMED Code(s): 312108509 ICD Code: CCR3079 - Status: Acute Current Visit: Yes (6) S/P primary low transverse SNOMED Code(s): 998525828, 01801511, 020207723, 585527577, 921140305 ICD Code: Z98.891 - HISTORY OF UTERINE SCAR FROM PREVIOUS SURGERY Status: Acute Current Visit: Yes - Patient Summary/Data Operative Procedure(s) Performed: Primary low transverse Complications: None Consults: None Recommended Follow-up Testing/Procedures: Follow up in 1 week for incision check Hospital Course: 28 y/o presented at 39 2/7 wks in early labor. Augmented with AROM which showed thick meconium fluid. Progressed to 9 cm well, but during this did develop fever, tachycardia, and intermittent decelerations. Started on antibiotics for chorioamnionitis. Attempted position changes and considered augmentation to achieve complete dilation, however, FHR tracing not reassuring and so unfortunately taken for PLTCS. This was uncomplicated. Baby noted to be straight OP presentation. Patient maintained on antibiotics until afebrile for 24 hours after delivery. Eventually discharged home on POD#2 - Patient Instructions Diet: Regular Diet as Tolerated Activity: No Lifting Over 10 Pounds Activity, Other: Pelvic rest for 6 weeks Driving: Do Not Drive (While taking narcotics ) Showering/Bathing: May Shower, No Tub Bathing/Swimming Wound/Incision Care: Keep Operative Site/Wound Site Clean and Dry Notify Provider of: Fever, Increased Pain, Swelling and Redness, Drainage, Nausea and/or Vomiting - Discharge Plan *PRESCRIPTION DRUG MONITORING PROGRAM REVIEWED*: No *COPY OF PRESCRIPTION DRUG MONITORING REPORT IN PATIENT TAL: No Prescriptions/Med Rec: Acetaminophen/oxyCODONE [Percocet 325-5 MG] 1 - 2 tab PO Q4H PRN #20 tablet PRN Reason: Pain (Moderate 4-6) Home Medications: Home Meds Levothyroxine [Synthroid] 50 mcg PO DAILY 12/11/18 [History] Acetaminophen/oxyCODONE [Percocet 325-5 MG] 1 - 2 tab PO Q4H PRN #20 tablet 09/03 [Rx] Docusate Sodium [Colace] 100 mg PO Q12H PRN cap 02/20/19 [Rx] Ibuprofen [Motrin] 600 mg PO Q6H PRN tablet 02/20/19 [Rx] Patient Handouts: and Inducing , and Low Milk Supply, Care After Delivery, Breast Pumping Tips, Easy- to-Read Referrals: Noa Tang MD [Primary Care Provider] - (1 week for check ) - Discharge Summary/Plan Comment DC Time >30 min.: No - Patient Data Vitals - Most Recent: Last Vital Signs Temp 36.8 C 02/21/19 04:06 Pulse 88 02/21/19 04:06 Resp 15 02/21/19 04:06 BP 106/64 02/21/19 04:06 Pulse Ox 95 02/21/19 04:06 Weight - Most Recent: 75.387 kg I&O - Last 24 hours: Intake & Output 02/20/19 02/21/19 02/21/19 22:59 06:59 14:59 Intake Total 100 Output Total 100 Balance -100 100 Med Orders - Current: Current Medications Diphenhydramine HCl (Benadryl) 25 mg IVPUSH Q6H PRN PRN Reason: Itching or Nausea Docusate Sodium (Colace) 100 mg PO Q12H PRN PRN Reason: Constipation Last Admin: 02/20/19 12:39 Dose: 100 mg Ephedrine Sulfate (Ephedrine Sulfate) 5 mg IVPUSH SEECOMMENT PRN PRN Reason: Other Ibuprofen (Motrin) 600 mg PO Q6H PRN PRN Reason: mild pain or fever Last Admin: 02/20/19 23:09 Dose: 600 mg Levothyroxine Sodium (Synthroid) 50 mcg PO ACBREAKFAST [facility] Last Admin: 02/21/19 06:05 Dose: 25 mcg Meperidine HCl (Meperidine) 12.5 mg IVPUSH ONETIME PRN PRN Reason: Shivering Naloxone HCl (Narcan) 0.1 mg IVPUSH SEECOMMENT PRN PRN Reason: Respiratory Depression Ondansetron HCl (Zofran) 4 mg IV Q8H PRN PRN Reason: Nausea/Vomiting Oxycodone/Acetaminophen (Percocet 325-5 Mg) 2 tab PO Q4H PRN PRN Reason: Pain (moderate 4-6) Last Admin: 02/21/19 04:07 Dose: 2 tab Discontinued Medications Acetaminophen (Tylenol) 975 mg PO ONETIME ONE Stop: 02/19/19 14:31 Last Admin: 02/19/19 14:47 Dose: 975 mg Acetaminophen (Tylenol) 975 mg PO ONETIME ONE Stop: 02/19/19 21:01 Last Admin: 02/19/19 22:21 Dose: Not Given Acetaminophen (Tylenol) 975 mg PO NOW STA Stop: 02/19/19 21:34 Last Admin: 02/19/19 21:40 Dose: 975 mg Bupivacaine HCl (Marcaine 0.5%) Confirm Administered Dose 30 ml .ROUTE .STK-MED ONE Stop: 02/19/19 18:12 Cefazolin Sodium (Ancef) Confirm Administered Dose 2 gm .ROUTE .STK-MED ONE Stop: 02/19/19 18:34 Citric Acid/Sodium Citrate (Bicitra Solution) 30 ml PO ONETIME ONE Stop: 02/19/19 17:53 Last Admin: 02/19/19 18:00 Dose: 30 ml Citric Acid/Sodium Citrate (Bicitra Solution) Confirm Administered Dose 30 ml .ROUTE .STK-MED ONE Stop: 02/19/19 17:58 Last Admin: 02/20/19 06:04 Dose: Not Given Diphenhydramine HCl (Benadryl) 25 mg IVPUSH Q6H PRN PRN Reason: Itching Ephedrine Sulfate (Ephedrine Sulfate) 5 mg IVPUSH ASDIRECTED PRN PRN Reason: HYPOTENTSION Fentanyl (Sublimaze) 100 mcg EPIDUR Q3H PRN PRN Reason: Pain Last Admin: 02/19/19 10:07 Dose: 100 mcg Fentanyl/Bupivacaine HCl (Fentanyl/Bupivacaine/Ns 2 Mcg-0.125% 100 Ml) 100 ml EPIDUR CONTINUOUS PRN PRN Reason: Pain Last Admin: 02/19/19 10:07 Dose: 100 ml Lactated Ringer's (Ringers, Lactated) 1,000 mls @ 100 mls/hr IV ASDIRECTED [facility] Last Admin: 02/19/19 14:58 Dose: 100 mls/hr Oxytocin/Lactated Ringer's (Pitocin In Lr 10 Units/1,000 Ml) 10 unit in 1,000 mls @ 500 mls/hr IV .CONTINUOUS [facility] Last Admin: 02/19/19 17:28 Dose: 500 mls/hr Ampicillin Sodium 2 gm/ Sodium (Chloride) 100 mls @ 200 mls/hr IV Q6H [facility] Stop: 02/20/19 23:00 Last Admin: 02/20/19 23:00 Dose: 200 mls/hr Gentamicin Sulfate 375 mg/ (Sodium Chloride) 109.375 mls @ 200 mls/hr IV ONETIME ONE Stop: 02/19/19 15:32 Last Admin: 02/19/19 15:11 Dose: 200 mls/hr Oxytocin/Lactated Ringer's (Pitocin In Lr 10 Units/1,000 Ml) 10 unit in 1,000 mls @ 12 mls/hr IV TITRATE [facility]; Protocol Last Admin: 02/19/19 17:28 Dose: 2 munits/min, 12 mls/hr Clindamycin Phosphate 900 mg/ (Sodium Chloride) 106 mls @ 100 mls/hr IV ONETIME ONE Stop: 02/19/19 18:55 Last Admin: 02/20/19 06:04 Dose: Not Given Sodium Chloride (Normal Saline) Confirm Administered Dose 100 mls @ as directed .ROUTE .STK-MED ONE Stop: 02/19/19 18:11 Last Admin: 02/20/19 06:04 Dose: Not Given Lactated Ringer's (Ringers, Lactated) Confirm Administered Dose 1,000 mls @ as directed .ROUTE .STK-MED ONE Stop: 02/19/19 19:03 Clindamycin Phosphate 900 mg/ (Premix) 50 mls @ 100 mls/hr IV Q8H [facility] Stop: 02/20/19 23:00 Last Admin: 02/20/19 18:06 Dose: 100 mls/hr Dextrose/Lactated Ringer's (Dextrose 5%-Lactated Ringers) 1,000 mls @ 125 mls/ hr IV ASDIRECTED [facility] Stop: 02/20/19 04:32 Last Admin: 02/19/19 20:57 Dose: 125 mls/hr Gentamicin Sulfate 375 mg/ (Sodium Chloride) 109.375 mls @ 200 mls/hr IV ONETIME ONE Stop: 02/20/19 15:32 Last Infusion: 02/20/19 16:55 Dose: Infused Ketorolac Tromethamine (Toradol) Confirm Administered Dose 30 mg .ROUTE .STK- MED ONE Stop: 02/19/19 18:39 Ketorolac Tromethamine (Toradol) 30 mg IVPUSH Q6H [facility] Stop: 02/20/19 12:31 Last Admin: 02/20/19 12:40 Dose: 30 mg Metoclopramide HCl (Reglan) 10 mg IVPUSH ONETIME ONE Stop: 02/19/19 17:53 Last Admin: 02/19/19 18:01 Dose: 10 mg Metoclopramide HCl (Reglan) Confirm Administered Dose 10 mg .ROUTE .STK-MED ONE Stop: 02/19/19 17:58 Last Admin: 02/20/19 06:04 Dose: Not Given Morphine Sulfate (Morphine) 8 mg IM ONETIME ONE Stop: 02/19/19 04:14 Last Admin: 02/19/19 04:26 Dose: 8 mg Morphine Sulfate (Duramorph Pf) Confirm Administered Dose 10 mg .ROUTE .STK-MED ONE Stop: 02/19/19 18:40 Nalbuphine HCl (Nubain) 10 mg IVPUSH Q2H PRN PRN Reason: Pain Ondansetron HCl (Zofran) 4 mg IVPUSH Q4H PRN PRN Reason: Nausea/Vomiting Promethazine HCl (Phenergan) 25 mg IM ONETIME ONE Stop: 02/19/19 04:14 Last Admin: 02/19/19 04:27 Dose: 25 mg Sodium Chloride (Saline Flush) 10 ml FLUSH ASDIRECTED PRN PRN Reason: Keep Vein Open
[2019-02-21] MEDS: Ibuprofen 600 MG Tab PO PRN (15:45)
== END 2019-02-21 18:45 | disposition home or self-care (01) | DRG 786 ==
LOC: JD.OBCHECK 03:46 → JD.OB 03:51 → JD.OBCHECK 03:53 → OBSVTOIN 18:31 → JD.OB 18:31
PROVIDERS: ADMIT Obstetrics & Gynecology; ATTEND Obstetrics & Gynecology
PROC: 10D00Z1 Extraction of Products of Conception, Low, Open Approach (ICD-10-PCS; principal; 2019-02-19)
DX: O77.0 Labor and delivery complicated by meconium in amniotic fluid (principal); O41.1230 Chorioamnionitis, third trimester, not applicable or unspecified; O76 Abnormality in fetal heart rate and rhythm complicating labor and delivery; O63.0 Prolonged first stage (of labor); O99.284 Endocrine, nutritional and metabolic diseases complicating childbirth; E03.9 Hypothyroidism, unspecified; Z3A.39 39 weeks gestation of pregnancy; Z37.0 Single live birth
CPT/HCPCS: 01967; 01968; 36415; 51702; 59025; 85027; 86592; 86850; 86900; 86901; A9270-GY; J0290; J0690; J1580; J1885; J2270; J2550; J2590; J2765; J3010; J3490; J7042; J7050; J7120